=== PATIENT | male | born 1990 | race Caucasian/White ===

== ENCOUNTER 2016-09-28 20:57 | Emergency (ER) | payer OTHER ==
[~2016-09-28 20:57] MED LIST: PRILOSEC40 MG PO
== END 2016-09-29 02:14 | disposition home or self-care (01) ==
LOC: ER1 20:57
DX: K08.89 Other specified disorders of teeth and supporting structures (principal); K02.9 Dental caries, unspecified; F17.210 Nicotine dependence, cigarettes, uncomplicated; Z88.6 Allergy status to analgesic agent; Z88.0 Allergy status to penicillin
CPT/HCPCS: 99282